=== PATIENT | female | born 1965 | race Two or more races ===

== ENCOUNTER 2020-05-31 01:12 | Emergency (ER) | payer MEDICAID, OTHER ==
[~2020-05-31] VITALS: Ht 154.9 cm; Wt 81.6 kg
[2020-05-31 01:19] VITALS: BP 156/117
[2020-05-31] MEDS ORDERED: FAMOTIDINE (20 MG) 20 MG TABLET ONE (01:28)
[2020-05-31] MEDS ORDERED: diphenhydrAMINE HCL 50 MG CAPSULE ONE (01:28)
[2020-05-31] MEDS ORDERED: FAMOTIDINE (20 MG) 20 MG TABLET PO ONE (01:30)
[2020-05-31] MEDS ORDERED: diphenhydrAMINE HCL 25 MG CAPSULE PO ONE (01:30)
== END 2020-05-31 01:47 | disposition home or self-care (01) ==
LOC: ER 01:17
DX: L50.0 Allergic urticaria (principal); T37.8X5A Adverse effect of other specified systemic anti-infectives and antiparasitics, initial encounter; F17.200 Nicotine dependence, unspecified, uncomplicated; Z90.49 Acquired absence of other specified parts of digestive tract; Y92.89 Other specified places as the place of occurrence of the external cause
CPT/HCPCS: 99283; Q0163